=== PATIENT | male | born 1950 | race Caucasian/White ===

== ENCOUNTER 2017-06-10 11:45 | Emergency (ER) | payer OTHER, MEDICARE, BC ==
--- NOTE | 2017-06-10 12:42 | ER Document Report ---
ED GI/ - General Chief Complaint: Urinary Problem Stated Complaint: BLOOD IN URINE Time Seen by Provider: 06/10/17 12:04 Mode of Arrival: Ambulatory Information source: Patient Notes: Patient is a 67 year old male who presents to the ER today for blood in his urine for "a couple days." Patient states that he is having some right flank pain as well. He denies any history of kidney stones, he denies any burning with urination, abdominal pain, fever, chills. He states that the low back pain is "just like a pressure more than a pain." He has been told that he had a "mass" on his kidney by his primary care provider at the [facility]. TRAVEL OUTSIDE OF THE [place] IN LAST 30 DAYS: No - Related Data Allergies/Adverse Reactions: No Known Allergies Allergy (Unverified 06/10/17 11:57) Past Medical History - General Information source: Patient - Social History Smoking Status: Unknown if Ever Smoked Family History: Reviewed & Not Pertinent Patient has suicidal ideation: No Patient has homicidal ideation: No Renal/ Medical History: Denies: Hx Peritoneal Dialysis Review of Systems - Review of Systems Constitutional: No symptoms reported EENT: No symptoms reported Cardiovascular: No symptoms reported Respiratory: No symptoms reported Gastrointestinal: No symptoms reported Genitourinary: See HPI Male Genitourinary: No symptoms reported Musculoskeletal: No symptoms reported Skin: No symptoms reported Hematologic/Lymphatic: No symptoms reported Neurological/Psychological: No symptoms reported Physical Exam - Vital signs Vitals: BP Pulse Ox 159/76 H 98 06/10/17 13:07 06/10/17 13:07 - Notes Notes: PHYSICAL EXAMINATION: GENERAL: Well-appearing and in no acute distress. HEAD: Atraumatic, normocephalic. EYES: Pupils equal round and reactive to light, extraocular movements intact, sclera anicteric, conjunctiva are normal. ENT: ear canals without erythema or foreign body, TMs pearly garay with good bony landmarks, nares patent, oropharynx clear without exudates. Moist mucous membranes. NECK: Normal range of motion, supple without lymphadenopathy LUNGS: CTAB and equal. No wheezes rales or rhonchi. HEART: Regular rate and rhythm without murmurs ABDOMEN: Soft, no tenderness. No guarding, no rebound BACK: no vertebral tenderness, normal ROM GI/: no CVA tenderness EXTREMITIES: Normal range of motion, no pitting edema. No cyanosis. NEUROLOGICAL: Cranial nerves grossly intact. Normal sensory/motor exams. PSYCH: Normal mood, normal affect. SKIN: Warm, Dry, normal turgor, no rashes or lesions noted Course - Re-evaluation Re-evalutation: 06/10/17 13:58 Right lab work is unremarkable except for some blood in his urinalysis today, no evidence of infection, Normal white blood cell count, normal urinalysis other than blood. CT of the abdomen reports multiple renal cysts, no masses, no stones. Hemoglobin is 15 today. Patient is stable to follow-up at the [facility] and get a referral for a general service technician through them. - Vital Signs Vital signs: Temp Pulse Resp BP Pulse Ox 62 16 159/79 H 100 06/10/17 14:55 06/10/17 14:55 06/10/17 14:55 06/10/17 14:55 - Laboratory Result Diagrams: 06/10/17 12:25 06/10/17 12:25 Laboratory results interpreted by me: 06/10/17 06/10/17 06/10/17 12:25 12:25 12:25 Lymphocytes % 12.7 L Total Protein 8.4 H Urine Blood MODERATE H Ur Leukocyte Esterase TRACE H Discharge - Discharge Clinical Impression: Hematuria Qualifiers: Hematuria type: unspecified type Qualified Code(s): R31.9 - Hematuria, unspecified Condition: Stable Disposition: HOME, SELF-CARE Additional Instructions: Return immediately for any new or worsening symptoms. Follow up with primary care provider, call tomorrow to make followup appointment. Referrals: DIVYA HARE FNP [Primary Care Provider] - Follow up as needed
[2017-06-10 12:44] LABS: ABSOLUTE BASOPHILS # (AUTO) 0.1 10^3/uL (0.0-0.2); ABSOLUTE EOSINOPHILS # (AUTO) 0.1 10^3/uL (0.0-0.6); ABSOLUTE LYMPHOCYTES (AUTO) 1.1 10^3/uL (0.5-4.7); ABSOLUTE NEUT (AUTO) 6.7 10^3/uL (1.7-8.2); BASOPHILS % (AUTO) 0.7 % (0-2); EOSINOPHILS % (AUTO) 1.2 % (0-6); HEMATOCRIT 46.1 % (37.9-51.0); HEMOGLOBIN 15.5 g/dL (13.5-17.0); HGB HCT DIFFERENCE 0.4; LYMPHOCYTES % (AUTO) 12.7 % (13-45); MEAN CORPUSCULAR HEMOGLOBIN 30.6 pg (27.0-33.4); MEAN CORPUSCULAR HGB CONC 33.7 g/dL (32.0-36.0); MEAN CORPUSCULAR VOLUME 91 fl (80-97); MONOCYTES % (AUTO) 10.8 % (3-13); RED BLOOD COUNT 5.09 10^6/uL (4.35-5.55); RED CELL DISTRIBUTION WIDTH 13.6 % (11.5-14.0); SEGMENTED NEUTROPHILS % (AUTO) 74.6 % (42-78); WHITE BLOOD COUNT 8.9 10^3/uL (4.0-10.5)
[2017-06-10 12:46] LABS: APPEARANCE,URINE CLEAR; BILIRUBIN,URINE NEGATIVE (NEGATIVE); GLUCOSE, URINE NEGATIVE (NEGATIVE); KETONES,URINE NEGATIVE (NEGATIVE); LEUKOCYTE ESTERASE,URINE TRACE (NEGATIVE); NITRITE,URINE NEGATIVE (NEGATIVE); PROTEIN,URINE NEGATIVE (NEGATIVE); URINE SPECIFIC GRAVITY 1.009; UROBILINOGEN,URINE NEGATIVE mg/dL (<2.0)
--- NOTE | 2017-06-10 12:52 | ER Document Report ---
ED Medical Screen (RME) - General Chief Complaint: Urinary Problem Stated Complaint: BLOOD IN URINE Time Seen by Provider: 06/10/17 12:04 Notes: 67-year-old male who presents with right flank pain and some blood in the urine. He states this started yesterday. He has not had any blood today. [facility] He states he has had an ileostomy in the past for Crohn's disease but has no current problems with this no recent fevers or vomiting. He has had no problem with urine output. TRAVEL OUTSIDE OF THE [place] IN LAST 30 DAYS: No - Related Data Allergies/Adverse Reactions: No Known Allergies Allergy (Unverified 06/10/17 11:57) Past Medical History Renal/ Medical History: Denies: Hx Peritoneal Dialysis Course - Laboratory Result Diagrams: 06/10/17 12:25 06/10/17 12:25 Laboratory results interpreted by me: 06/10/17 06/10/17 12:25 12:25 Lymphocytes % 12.7 L Urine Blood MODERATE H Ur Leukocyte Esterase TRACE H
[2017-06-10 12:59] LABS: ALANINE AMINOTRANSFERASE 55 U/L (21-72); ALBUMIN 4.8 g/dL (3.5-5.0); ALKALINE PHOSPHATASE 85 U/L (38-126); ANION GAP 14 (5-19); ASPARTATE AMINO TRANSFERASE 30 U/L (17-59); BILIRUBIN,DIRECT 0.3 mg/dL (0.0-0.4); BILIRUBIN,TOTAL 0.5 mg/dL (0.2-1.3); BLOOD UREA NITROGEN 16 mg/dL (7-20); CARBON DIOXIDE 22 mmol/L (22-30); CHLORIDE 107 mmol/L (98-107); CREATININE RESULT 0.99 mg/dL (0.52-1.25); GLUCOSE 106 mg/dL (75-110); POTASSIUM 3.7 mmol/L (3.6-5.0); SODIUM 143.1 mmol/L (137-145); TOTAL PROTEIN 8.4 g/dL (6.3-8.2)
--- NOTE | 2017-06-10 13:28 | RADIOLOGY REPORT (SQ) ---
EXAM DESCRIPTION: CT ABD/PELVIS NO ORAL OR IV COMPLETED DATE/TIME: 06/10/2017 1:01 pm REASON FOR STUDY: right flank pain/hematuria COMPARISON: None. TECHNIQUE: CT scan of the abdomen and pelvis performed without intravenous or oral contrast. Images reviewed with lung, soft tissue, and bone windows. Reconstructed coronal and sagittal MPR images revi ewed. All images stored on PACS. All CT scanners at this facility use dose modulation, iterative reconstruction, and/or weight based d osing when appropriate to reduce radiation dose to as low as reasonably achievable (ALARA). [facility]: Dose Right [facility]: CareDose [facility]: Dose Right [facility]: Teradose 4D [facility]: Hyperpia RADIATION DOSE: mGy. LIMITATIONS: None. FINDINGS: LOWER CHEST: No significant findings. No nodules or infiltrates. NON-CONTRASTED LIVER, SPLEEN, ADRENALS: Evaluation limited by lack of IV contrast. No identified sign ificant masses. PANCREAS: No masses. No peripancreatic inflammatory changes. GALLBLADDER: Status post cholecystectomy. RIGHT KIDNEY AND URETER: No suspicious masses. Assessment limited by lack of IV contrast. Multiple v arying size renal cysts are identified including a hyperdense cyst. Focal calcific density is ident ified which appears to be at the site of a cortical scar. No hydronephrosis or hydroureter. LEFT KIDNEY AND URETER: No suspicious masses. Assessment limited by lack of IV contrast. Multiple va rying size renal cysts are identified. No significant calcifications. No hydronephrosis or hydrou reter. AORTA AND RETROPERITONEUM: No aneurysm. No retroperitoneal masses or adenopathy. BOWEL AND PERITONEAL CAVITY: No obvious masses or inflammatory changes. No free fluid. Postsurgical changes are identified in the right pelvis. APPENDIX: Not identified PELVIS, BLADDER, AND ABDOMINAL WALL:No abnormal masses. No free fluid. There is enlargement of the p rostate gland with a prostatic impression on the bladder base. BONES: There is approximately 50% compression of the L1 vertebra which is age indeterminate. OTHER: An ostomy is identified in the right lower quadrant with multiple herniated bowel loops consis tent with a parastomal hernia. IMPRESSION: An ostomy is identified in a right lower quadrant with multiple herniated bowel loops co nsistent with a parastomal hernia. No obstruction is seen multiple bilateral renal cysst as noted ab ove. Other findings as noted above TECHNICAL DOCUMENTATION: JOB ID: [id number] Quality ID # [id number]: Final reports with documentation of one or more dose reduction techniques (e.g., Au tomated exposure control, adjustment of the mA and/or kV according to patient size, use of iterative reconstruction technique) 2010 [employer]- All Rights Reserved
[2017-06-10 14:56] VITALS: BP 159/79
== END 2017-06-10 14:57 | disposition home or self-care (01) ==
LOC: ER 11:45
DX: R31.9 Hematuria, unspecified (principal); R39.198 Other difficulties with micturition; Z98.890 Other specified postprocedural states
CPT/HCPCS: 36415; 74176; 80053; 81001; 85025; 99284

== ENCOUNTER 2017-08-28 12:56 | Emergency (ER) | payer OTHER, BC ==
--- NOTE | 2017-08-28 13:33 | ER Document Report ---
ED General - General Chief Complaint: Urinary Problem Stated Complaint: PASSING BLOOD Time Seen by Provider: 08/28/17 13:18 Mode of Arrival: Ambulatory Information source: Patient Notes: 67 yr old male presents with complaints of blood from the penis. pt notes he has had similar episode recently, which resolved and patient did not follow up as requested by the ED. Pt noted the blood started worse this morning. denies any pain or imitation at the penis , notes mild pain in the right inguinal region ot the flank. no hx of kidney stones, recent ct noted no acute abnormality. TRAVEL OUTSIDE OF THE [place] IN LAST 30 DAYS: No - HPI Onset: Just prior to arrival Onset/Duration: Sudden Quality of pain: Achy Severity: Mild Pain Level: Denies Associated symptoms: Other Exacerbated by: Denies Relieved by: Denies Similar symptoms previously: Yes Recently seen / treated by doctor: Yes - Related Data Allergies/Adverse Reactions: No Known Allergies Allergy (Unverified 06/10/17 11:57) Past Medical History - Social History Smoking Status: Never Smoker Cigarette use (# per day): No Chew tobacco use (# tins/day): No Smoking Education Provided: No Frequency of alcohol use: None Family History: Reviewed & Not Pertinent Patient has suicidal ideation: No Patient has homicidal ideation: No - Past Medical History Cardiac Medical History: Reports: Hx Hypertension Renal/ Medical History: Denies: Hx Peritoneal Dialysis Past Surgical History: Reports: Hx Abdominal Surgery - Ileostomy Physical Exam - Vital signs Vitals: Temp Pulse Resp BP Pulse Ox 98.1 F 82 16 163/83 H 98 08/28/17 12:58 08/28/17 12:58 08/28/17 12:58 08/28/17 12:58 08/28/17 12:58 Course - Re-evaluation Re-evalutation: 08/28/17 15:42 Urinalysis is consistent with large white blood cells large red blood cells, I believe he is having a urinary tract infection. Patient will be started on antibiotics must follow-up with urology InitiationCT was consistent with blood in the bladder and irritation After performing a Medical Screening Examination, I estimate there is LOW risk for ACUTE APPENDICITIS, BOWEL OBSTRUCTION, ACUTE CHOLECYSTITIS, PERFORATED DIVERTICULITIS, INCARCERATED HERNIA, PANCREATITIS, TESTICULAR TORSION or PERFORATED ULCER, thus I consider the discharge disposition reasonable. Also, there is no evidence or peritonitis, sepsis, or toxicity. I have reevaluated this patient multiple times and no significant life threatening changes are noted. The patient and I have discussed the diagnosis and risks, and we agree with discharging home with close follow-up with the understanding that symptoms and presentations can change. We also discussed returning to the Emergency Department immediately if new or worsening symptoms occur. We have discussed the symptoms which are most concerning (e.g., bloody stool, fever, changing or worsening pain, intractable vomiting - standard verbal up date) that necessitate immediate return. 08/28/17 15:43 - Vital Signs Vital signs: Temp Pulse Resp BP Pulse Ox 98.1 F 82 16 163/83 H 98 08/28/17 12:58 08/28/17 12:58 08/28/17 12:58 08/28/17 12:58 08/28/17 12:58 - Laboratory Result Diagrams: 08/28/17 14:00 08/28/17 14:00 Laboratory results interpreted by me: 08/28/17 08/28/17 08/28/17 14:00 14:00 14:20 RBC 3.99 L Hgb 12.4 L Hct 36.1 L RDW 14.4 H Seg Neutrophils % 78.5 H Lymphocytes % 9.6 L Sodium 148.9 H Chloride 110 H Glucose 142 H Urine Protein 100 H Urine Glucose (UA) 50 H Urine Ketones TRACE H Urine Blood LARGE H - Diagnostic Test Radiology reviewed: Image reviewed, Reports reviewed Discharge - Discharge Clinical Impression: UTI (urinary tract infection) Qualifiers: Urinary tract infection type: acute cystitis Hematuria presence: with hematuria Qualified Code(s): N30.01 - Acute cystitis with hematuria Hematuria Qualifiers: Hematuria type: unspecified type Qualified Code(s): R31.9 - Hematuria, unspecified Condition: Stable Disposition: HOME, SELF-CARE Instructions: Urinary Tract Infection ([facility]) Additional Instructions: You must be seen by the urologist immediately Return if there are any other concerns Prescriptions: Ciprofloxacin HCl [Cipro 500 mg Tablet] 500 mg PO BID #20 tablet
[2017-08-28 14:21] LABS: ABSOLUTE BASOPHILS # (AUTO) 0.1 10^3/uL (0.0-0.2); ABSOLUTE EOSINOPHILS # (AUTO) 0.2 10^3/uL (0.0-0.6); ABSOLUTE LYMPHOCYTES (AUTO) 0.8 10^3/uL (0.5-4.7); ABSOLUTE MONOCYTES (AUTO) 0.7 10^3/uL (0.1-1.4); ABSOLUTE NEUT (AUTO) 6.3 10^3/uL (1.7-8.2); BASOPHILS % (AUTO) 0.9 % (0-2); EOSINOPHILS % (AUTO) 2.5 % (0-6); HEMATOCRIT 36.1 % (37.9-51.0); HEMOGLOBIN 12.4 g/dL (13.5-17.0); HGB HCT DIFFERENCE 1.1; LYMPHOCYTES % (AUTO) 9.6 % (13-45); MEAN CORPUSCULAR HEMOGLOBIN 31.2 pg (27.0-33.4); MEAN CORPUSCULAR HGB CONC 34.5 g/dL (32.0-36.0); MEAN CORPUSCULAR VOLUME 90 fl (80-97); MONOCYTES % (AUTO) 8.5 % (3-13); RED BLOOD COUNT 3.99 10^6/uL (4.35-5.55); RED CELL DISTRIBUTION WIDTH 14.4 % (11.5-14.0); SEGMENTED NEUTROPHILS % (AUTO) 78.5 % (42-78)
[2017-08-28 14:34] LABS: PROTHROMBIN TIME 12.7 SEC (11.4-15.4)
[2017-08-28 14:43] LABS: ALANINE AMINOTRANSFERASE 29 U/L (21-72); ALBUMIN 4.2 g/dL (3.5-5.0); ALKALINE PHOSPHATASE 59 U/L (38-126); ANION GAP 15 (5-19); ASPARTATE AMINO TRANSFERASE 19 U/L (17-59); BILIRUBIN,DIRECT 0.2 mg/dL (0.0-0.4); BILIRUBIN,TOTAL 0.2 mg/dL (0.2-1.3); BLOOD UREA NITROGEN 20 mg/dL (7-20); CALCIUM 9.5 mg/dL (8.4-10.2); CARBON DIOXIDE 24 mmol/L (22-30); CHLORIDE 110 mmol/L (98-107); CREATININE RESULT 1.14 mg/dL (0.52-1.25); GLUCOSE 142 mg/dL (75-110); POTASSIUM 3.8 mmol/L (3.6-5.0); SODIUM 148.9 mmol/L (137-145); TOTAL PROTEIN 6.9 g/dL (6.3-8.2)
--- NOTE | 2017-08-28 15:28 | RADIOLOGY REPORT (SQ) ---
EXAM DESCRIPTION: CT LTD RENAL STONE PROTOCOL ON COMPLETED DATE/TIME: 08/28/2017 2:40 pm REASON FOR STUDY: hematuria COMPARISON: CT abdomen and pelvis 06/10/2017 TECHNIQUE: CT scan of the abdomen and pelvis performed without intravenous or oral contrast. Images reviewed with lung, soft tissue, and bone windows. Reconstructed coronal and sagittal MPR images revi ewed. All images stored on PACS. All CT scanners at this facility use dose modulation, iterative reconstruction, and/or weight based d osing when appropriate to reduce radiation dose to as low as reasonably achievable (ALARA). [facility]: Dose Right [facility]: CareDose [facility]: Dose Right [facility]: Teradose 4D [facility]: Funky Moves RADIATION DOSE: Up-to-date CT equipment and radiation dose reduction techniques were employed. CTDIv ol: 20.4 mGy. DLP: 1041 mGy-cm.mGy. LIMITATIONS: None. FINDINGS: LOWER CHEST: No significant findings. No nodules or infiltrates. NON-CONTRASTED LIVER, SPLEEN, ADRENALS: Evaluation limited by lack of IV contrast. No identified sign ificant masses. PANCREAS: No masses. No peripancreatic inflammatory changes. GALLBLADDER: Surgically absent. RIGHT KIDNEY AND URETER: No suspicious masses. Multiple cysts of differing sizes are present. Ther e is somewhat linear calcification associated with a small cortical scar. No hydronephrosis or hydr oureter. LEFT KIDNEY AND URETER: No solid masses. Multiple cysts. No significant calcifications. No hydro nephrosis or hydroureter. AORTA AND RETROPERITONEUM: No aneurysm. No retroperitoneal masses or adenopathy. BOWEL AND PERITONEAL CAVITY: No masses are present. There is a parastomal hernia in the right lower quadrant containing loops of bowel with no evidence of obstruction. APPENDIX: Surgically absent. PELVIS, BLADDER, AND ABDOMINAL WALL:The urinary bladder is distended. There is material within the b ladder of 2 different densities, suggesting the possibility of some blood within the bladder. The pr ostate gland is markedly enlarged. BONES: Degenerative disc changes of the lumbar spine. No osseous lesions OTHER: No other significant finding. IMPRESSION: 1. Bilateral renal cysts. No ureteral stone or obstruction. 2. Urinary bladder is somewhat distended. There may be some fresh blood in the bladder. 3. The prostate gland is markedly enlarged. 4. Parastomal hernia with no evidence of bowel obstruction. COMMENT: Quality ID # 436: Final reports with documentation of one or more dose reduction techniques (e.g., Automated exposure control, adjustment of the mA and/or kV according to patient size, use of iterative reconstruction technique) TECHNICAL DOCUMENTATION: JOB ID: [id number] [employer]- All Rights Reserved
[2017-08-28 15:33] LABS: APPEARANCE,URINE CLOUDY; BILIRUBIN,URINE NEGATIVE (NEGATIVE); GLUCOSE, URINE 50 mg/dL (NEGATIVE); KETONES,URINE TRACE mg/dL (NEGATIVE); LEUKOCYTE ESTERASE,URINE NEGATIVE (NEGATIVE); NITRITE,URINE NEGATIVE (NEGATIVE); PROTEIN,URINE 100 mg/dL (NEGATIVE); URINE SPECIFIC GRAVITY 1.027; UROBILINOGEN,URINE NEGATIVE mg/dL (<2.0)
[2017-08-28 15:35] LABS: RBC,URINE TOO NUMEROUS TO CNT /HPF; WBC,URINE TOO NUMEROUS TO CNT /HPF
[2017-08-28 16:14] VITALS: BP 176/88
== END 2017-08-28 16:20 | disposition home or self-care (01) ==
LOC: ER 12:56
DX: N30.01 Acute cystitis with hematuria (principal); R31.9 Hematuria, unspecified; R39.198 Other difficulties with micturition
CPT/HCPCS: 36415; 76380; 80053; 81001; 85025; 85610; 87086; 99284

== ENCOUNTER 2017-09-05 02:42 | Emergency (ER) | payer OTHER, BC ==
[2017-09-05 04:05] LABS: APPEARANCE,URINE CLOUDY; BILIRUBIN,URINE NEGATIVE (NEGATIVE); GLUCOSE, URINE NEGATIVE (NEGATIVE); KETONES,URINE NEGATIVE (NEGATIVE); LEUKOCYTE ESTERASE,URINE NEGATIVE (NEGATIVE); NITRITE,URINE NEGATIVE (NEGATIVE); PROTEIN,URINE 100 mg/dL (NEGATIVE); URINE SPECIFIC GRAVITY 1.017; UROBILINOGEN,URINE NEGATIVE mg/dL (<2.0)
[2017-09-05] MEDS ORDERED: LIDOCAINE 2% URO-JET 5 ML KIT MM ONE (04:47)
--- NOTE | 2017-09-05 05:37 | ER Document Report ---
ED General - General Chief Complaint: Trouble Voiding Stated Complaint: CANNOT URINATE Time Seen by Provider: 09/05/17 03:46 Notes: Patient is a 67-year-old male presents emergency department complaining of urinary frequency, hematuria. Patient was evaluated here on the fourth of this month and diagnosed with a urinary tract infection and told to follow-up with urology. Previous to that patient had been seen here in May for similar complaint and still has not followed up with a specialist. He states that his symptoms are consistent with what he presented with here last time otherwise he denies any flank pain, nausea, vomiting, urinary retention, flank pain. Primary care is the [facility] TRAVEL OUTSIDE OF THE [place] IN LAST 30 DAYS: No - Related Data Allergies/Adverse Reactions: No Known Allergies Allergy (Verified 09/05/17 02:44) Past Medical History - Social History Smoking Status: Former Smoker Family History: Reviewed & Not Pertinent Patient has suicidal ideation: No Patient has homicidal ideation: No - Past Medical History Cardiac Medical History: Reports: Hx Hypertension Renal/ Medical History: Denies: Hx Peritoneal Dialysis Past Surgical History: Reports: Hx Abdominal Surgery - Ileostomy Review of Systems - Review of Systems Constitutional: No symptoms reported Cardiovascular: No symptoms reported Respiratory: No symptoms reported Gastrointestinal: No symptoms reported Genitourinary: See HPI -: Yes All other systems reviewed and negative Physical Exam - Vital signs Vitals: Temp Pulse Resp BP Pulse Ox 97.9 F 84 18 165/77 H 100 09/05/17 02:45 09/05/17 02:45 09/05/17 02:45 09/05/17 02:45 09/05/17 02:45 - Notes Notes: PHYSICAL EXAM GENERAL: Alert, interacts well. HEAD: Normocephalic, atraumatic. EYES: Pupils equal, round, and reactive to light. Extraocular movements intact. ENT: Oral mucosa moist, tongue midline. NECK: Full range of motion. Supple. Trachea midline. LUNGS: Clear to auscultation bilaterally, no wheezes, rales, or rhonchi. No respiratory distress. HEART: Regular rate and rhythm. No murmurs, gallops, or rubs. ABDOMEN: Soft, nondistended, nontender. No guarding, rebound, or rigidity.. Bowel sounds present in all 4 quadrants. EXTREMITIES: Moves all 4 extremities spontaneously. No edema, radial and dorsalis pedis pulses 2/4 bilaterally. No cyanosis. NEUROLOGICAL: Alert and oriented x4. Normal speech. PSYCH: Normal affect, normal mood. SKIN: Warm, dry, normal turgor. No rashes or lesions noted. Course - Re-evaluation Re-evalutation: 09/05/17 07:02 Patient is a 67-year-old male who is hemodynamically stable, no acute distress afebrile. Bladder scan at the bedside does not show any evidence of urinary retention with 160 mL in the bladder. Review of CT scan completed 10 days ago shows enlarged prostate. Patient states that he is no longer taking Flomax since he ran out of it. Discussed with patient that at this time we do not need to force placement of a Flynn catheter given his enlarged prostate and no evidence of urinary retention or acute renal failure. Patient to be discharged home on Flomax and to follow-up with urology on Thursday. Patient agrees with plan. - Vital Signs Vital signs: Temp Pulse Resp BP Pulse Ox 97.9 F 84 18 165/77 H 100 09/05/17 02:45 09/05/17 02:45 09/05/17 02:45 09/05/17 02:45 09/05/17 02:45 - Laboratory Result Diagrams: 09/05/17 06:04 Laboratory results interpreted by me: 09/05/17 09/05/17 03:34 06:04 Sodium 145.8 H Chloride 114 H Carbon Dioxide 19 L BUN 25 H Glucose 122 H Urine Protein 100 H Urine Blood LARGE H Discharge - Discharge Clinical Impression: Hematuria Qualifiers: Hematuria type: gross Qualified Code(s): R31.0 - Gross hematuria Condition: Good Disposition: HOME, SELF-CARE Instructions: Hematuria ([facility]) Additional Instructions: Please be sure to follow-up with urology on Thursday regarding your presentation today. Please take your Flomax as prescribed. Prescriptions: Tamsulosin HCl [Flomax 0.4 mg Cap.sr] 0.4 mg PO DAILY #30 cap.sr.24h Referrals: BRANDT BORJA MD [Primary Care Provider] - Follow up as needed [facility] [Provider Group] - 09/07/17
[2017-09-05] MEDS ORDERED: OXYCODONE-ACETAMINOPHEN 5-325 MG TABLET PO ONE (05:38)
[2017-09-05] MEDS ORDERED: LORAZEPAM 1 MG TABLET PO ONE (05:38)
[2017-09-05 06:37] LABS: ALBUMIN 4.2 g/dL (3.5-5.0); ANION GAP 13 (5-19); BILIRUBIN,DIRECT 0.4 mg/dL (0.0-0.4); BILIRUBIN,TOTAL 0.4 mg/dL (0.2-1.3); CALCIUM 9.7 mg/dL (8.4-10.2); CARBON DIOXIDE 19 mmol/L (22-30); CHLORIDE 114 mmol/L (98-107); CREATININE RESULT 1.14 mg/dL (0.52-1.25); GLUCOSE 122 mg/dL (75-110); SODIUM 145.8 mmol/L (137-145); TOTAL PROTEIN 7.2 g/dL (6.3-8.2)
[2017-09-05 06:57] LABS: ALKALINE PHOSPHATASE 53 U/L (38-126); ASPARTATE AMINO TRANSFERASE 25 U/L (17-59); BLOOD UREA NITROGEN 25 mg/dL (7-20); POTASSIUM 4.1 mmol/L (3.6-5.0)
[2017-09-05 06:58] LABS: ALANINE AMINOTRANSFERASE 23 U/L (21-72)
[2017-09-05 07:38] VITALS: BP 141/76
== END 2017-09-05 07:37 | disposition home or self-care (01) ==
LOC: ER 02:42
DX: R31.0 Gross hematuria (principal); N40.1 Benign prostatic hyperplasia with lower urinary tract symptoms; R35.0 Frequency of micturition; I10 Essential (primary) hypertension; Z87.891 Personal history of nicotine dependence
CPT/HCPCS: 99283; 36415; 80053; 81001; J3490